=== PATIENT | male | born 1995 | race Caucasian/White ===

== ENCOUNTER 2017-12-10 19:40 | Emergency (ER) | payer BC ==
[2017-12-10 20:40] VITALS: BP 113/50
[2017-12-10] MEDS ORDERED: Lidocaine 1% MPF wEPI 200,000* 30 ML SDV INJ ONE (21:17)
--- NOTE | 2017-12-10 21:17 | UC ---
Skin Complaint HPI - HPI Summary HPI Summary: 22 yo male with painful lump over tailbone worsening x days has been using exercise bike no f/c no hx MRSA - History of Current Complaint Chief Complaint: UCSkin Time Seen by Provider: 12/10/17 21:10 Stated Complaint: TAILBONE COMP Hx Obtained From: Patient Onset/Duration: Gradual Onset Skin Exposure Onset/Duration: Days Ago Timing: Constant Onset Severity: Mild Current Severity: Moderate Pain Intensity: 6 Pain Scale Used: 0-10 Numeric Location: Other - gluteal cleft Character: Pain, Raised, Painful Aggravating Factor(s): Touch Alleviating Factor(s): Nothing Associated Signs & Symptoms: Positive: Negative - Allergy/Home Medications Allergies/Adverse Reactions: Allergies Allergy/AdvReac Type Severity Reaction Status Date / Time No Known Allergies Allergy Verified 12/10/17 20:33 Review of Systems Constitutional: Negative Skin: Negative Eyes: Negative ENT: Negative Respiratory: Negative Cardiovascular: Negative Gastrointestinal: Negative Genitourinary: Negative Motor: Negative Neurovascular: Negative Musculoskeletal: Negative Neurological: Negative Psychological: Negative Is Patient Immunocompromised?: No All Other Systems Reviewed And Are Negative: Yes PMH/Surg Hx/FS Hx/Imm Hx - Surgical History Surgical History: Yes Surgery Procedure, Year, and Place: T&A - Social History Alcohol Use: Occasionally Substance Use Type: None Smoking Status (MU): Never Smoked Tobacco - Immunization History Vaccination Up to Date: Yes Physical Exam Triage Information Reviewed: Yes Appearance: Well-Appearing, No Pain Distress, Well-Nourished Vital Signs: Initial Vital Signs Temp 98.8 F 12/10/17 20:34 Pulse 70 12/10/17 20:34 Resp 16 12/10/17 20:34 BP 113/50 12/10/17 20:34 Pulse Ox 98 12/10/17 20:34 Vital Signs Reviewed: Yes Eyes: Positive: Conjunctiva Clear ENT: Positive: Hearing grossly normal. Negative: Nasal congestion, Nasal drainage, Trismus, Muffled voice, Hoarse voice Neck: Positive: Supple Respiratory: Positive: Lungs clear, Normal breath sounds, No respiratory distress, No accessory muscle use Cardiovascular: Positive: RRR, No Murmur Abdomen Description: Positive: Nontender. Negative: CVA Tenderness (R), CVA Tenderness (L) Bowel Sounds: Positive: Present Musculoskeletal: Positive: ROM Intact, No Edema Psychological Exam: Normal Skin Exam: Other - pilonidal abscess Course/Dx - Diagnoses Provider Diagnoses: INCISION AND DRAINAGE OF PILONIDAL ABSCESS Procedures - Procedure Summary Procedure Summary: INCISION AND DRAINAGE OF PILONIDAL ABSCESS TIME OUT STERILE PREP ANESTH WITH 2 CC LIDOCAINE WITH EPI INCISED WITH 11 BLADE 1-2 CC OF PUS EXPRESSED STERILE DRESSING CULTURE OBTAINED TOLERATED PROCEDURE WELL Discharge - Sign-Out/Discharge Documenting (check all that apply): Discharge - Discharge Plan Condition: Improved Disposition: HOME Prescriptions: Sulfamethox/Trimethoprim DS* [Bactrim DS 800/160 TAB*] 1 tab PO BID #14 tab Patient Education Materials: Pilonidal Cyst (ED), Abscess (ED) Referrals: No Primary Care Phys,NOPCP [Primary Care Provider] - Additional Instructions: sitz baths 2-4 x day until better I expect you to continue to improve daily If you take a turn for the worse return here see a surgeon re options should this recur you may need sugical excision - Billing Disposition and Condition Condition: IMPROVED Disposition: HOME
[2017-12-10] MEDS ORDERED: Ibuprofen TAB* 600 MG PO ONE (21:39)
[2017-12-10] MEDS ORDERED: Sulfamethox/Trimethoprim DS 800/160* TAB PO ONE (21:39)
--- NOTE | 2017-12-12 07:22 | UC ---
- Progress Note Progress Note: MRSA neg staph neg await sensitivity pt on bactrim - no change Sonal 12/12/17 Discharge - Sign-Out/Discharge Documenting (check all that apply): Discharge - Discharge Plan Condition: Improved Disposition: HOME Prescriptions: Sulfamethox/Trimethoprim DS* [Bactrim DS 800/160 TAB*] 1 tab PO BID #14 tab Patient Education Materials: Pilonidal Cyst (ED), Abscess (ED) Referrals: No Primary Care Phys,NOPCP [Primary Care Provider] - Additional Instructions: sitz baths 2-4 x day until better I expect you to continue to improve daily If you take a turn for the worse return here see a surgeon re options should this recur you may need sugical excision - Billing Disposition and Condition Condition: IMPROVED Disposition: HOME
== END 2017-12-10 21:53 | disposition home or self-care (01) ==
LOC: UCCORT 19:40
DX: L05.01 Pilonidal cyst with abscess (principal)
CPT/HCPCS: 10080; 87070; 87205; 87640; 87641; 99212; A9270-GY; G0463; J2001

== ENCOUNTER 2019-02-21 18:34 | Emergency (ER) | payer BC ==
[2019-02-21 19:00] VITALS: BP 134/68
[2019-02-21] MEDS ORDERED: Tetracaine 0.5% OPTH.SOL 4 ML* 1 DROP BTL ONE (19:14)
[2019-02-21] MEDS ORDERED: Fluorescein Sodium TOPICAL* 1 MG TEST STRIP OPHTHALMIC ONE (19:15)
--- NOTE | 2019-02-21 19:34 | ED ---
Throat Pain/Nasal Congestion - HPI Summary HPI Summary: 23 yr old male with the complaint of right eye pain, irritation. Onset this morning. No clear story of anything going in the eye. The patient has been having increased tearing. The patient denies blur vision. - History of Current Complaint Chief Complaint: UCEye Time Seen by Provider: 02/21/19 18:59 - Allergies/Home Medications Allergies/Adverse Reactions: Allergies Allergy/AdvReac Type Severity Reaction Status Date / Time No Known Allergies Allergy Verified 02/21/19 19:00 Home Medications: Home Medications NK [No Home Medications Reported] 02/21/19 [History Confirmed 02/21/19] PMH/Surg Hx/FS Hx/Imm Hx - Surgical History Surgery Procedure, Year, and Place: T&A. pilonidal cyst removal Infectious Disease History: No Infectious Disease History: Denies: Traveled Outside the [place] in Last 30 Days - Family History Known Family History: Positive: None - Social History Alcohol Use: Occasionally Substance Use Type: Reports: None Smoking Status (MU): Never Smoked Tobacco Review of Systems Constitutional: Negative Positive: Erythema, Other - discomfort in right eye. All Other Systems Reviewed And Are Negative: Yes Physical Exam Triage Information Reviewed: Yes Vital Signs On Initial Exam: Initial Vitals Temp Pulse Resp BP Pulse Ox 98.1 F 69 15 134/68 100 02/21/19 18:57 02/21/19 18:57 02/21/19 18:57 02/21/19 18:57 02/21/19 18:57 Vital Signs Reviewed: Yes Appearance: Positive: Well-Appearing, No Pain Distress Skin: Positive: Warm, Skin Color Reflects Adequate Perfusion Head/Face: Positive: Normal Head/Face Inspection Eyes: Positive: EOMI, DANE, Conjunctiva Inflammed, Other: - flourescein stain applied and there is uptake between the noon and 2 oclock position of the cornea. right eye. It is ellipitcal in shape. Cannot visualize the area without slit lamp. patient sent to ER for slit lamp exam. ENT: Positive: Pharynx normal Neck: Positive: Nontender Respiratory/Lung Sounds: Positive: Clear to Auscultation, Breath Sounds Present Cardiovascular: Positive: RRR. Negative: Murmur Abdomen Description: Negative: Distended Musculoskeletal: Positive: Strength/ROM Intact Neurological: Positive: Sensory/Motor Intact, Alert, Oriented to Person Place, Time, CN Intact II-III, Normal Gait, Speech Normal Psychiatric: Positive: Normal Diagnostics - Vital Signs Vital Signs Temp Pulse Resp BP Pulse Ox 02/21/19 18:57 98.1 F 69 15 134/68 100 - Laboratory Lab Statement: Any lab studies that have been ordered have been reviewed, and results considered in the medical decision making process. EENT Course/Dx - Course Course Of Treatment: 23 yr old with possible corneal ulcer right eye. - Diagnoses Provider Diagnoses: Corneal ulcer of right eye Discharge - Sign-Out/Discharge Documenting (check all that apply): Patient Departure All imaging exams completed and their final reports reviewed: No Studies - Discharge Plan Condition: Good Disposition: HOME-RECOMMEND TO ED Patient Education Materials: Corneal Ulcer (ED) Referrals: No Primary Care Phys,NOPCP [Primary Care Provider] - Additional Instructions: You need to go to either [facility] or [facility] in [facility] for a detailed eye exam. You may have an ulcer and this needs to be diagnosed this evening as soon as possible. Do not delay. - Billing Disposition and Condition Condition: GOOD Disposition: Home-Recommend to ED
== END 2019-02-21 19:41 | disposition home health service (06) ==
LOC: UCCORT 18:34
DX: H16.001 Unspecified corneal ulcer, right eye (principal)
CPT/HCPCS: 99212; A9270-GY; G0463